=== PATIENT | male | born 1995 | race Caucasian/White ===

== ENCOUNTER → 2017-05-28 | Outpatient (CLI) | payer OTHER, SELFPAY | PROVIDERS: Visit Provider Physician Assistant | DX: Z79.899 Other long term (current) drug therapy (principal); L70.0 Acne vulgaris | CPT/HCPCS: 36415; 80053; 80061; 85025 ==

== ENCOUNTER → 2017-09-23 12:19 | Outpatient (CLI) | payer OTHER, SELFPAY ==
--- NOTE | 2017-09-23 12:24 | XR_ITS ---
XR foot RT min 3V HISTORY: ITS.REASON: Right foot pain ORDERING PHYSICIAN: Kj Interiano MD PATIENT AGE: 22 years COMPARISON: FINDINGS: No fracture or dislocation. No lytic or blastic change. There is normal mineralization.. The joint spaces are well-preserved. No significant degenerative/arthritic changes. No erosive changes evident. No calcaneal spur apparent IMPRESSION: Negative right, no acute finding
--- NOTE | 2017-09-23 12:24 | XR_ITS ---
XR foot LT min 3V HISTORY: ITS.REASON: Left foot pain ORDERING PHYSICIAN: Kj Interiano MD PATIENT AGE: 22 years COMPARISON: None FINDINGS: No fracture or dislocation. No lytic or blastic change. There is normal mineralization.. The joint spaces are well-preserved. No significant degenerative/arthritic changes. No erosive changes evident. No calcaneal spur evident IMPRESSION: Negative left, no acute finding
== END ==
PROVIDERS: Visit Provider Orthopaedic Surgery
DX: M79.671 Pain in right foot (principal); M79.672 Pain in left foot
CPT/HCPCS: 73630

== ENCOUNTER 2017-09-29 14:13 | Outpatient (RCR) | payer OTHER, SELFPAY | END 2017-09-29 14:14 | disposition home or self-care (01) | LOC: PT 14:13 | PROVIDERS: PCP Orthopaedic Surgery; Visit Provider Orthopaedic Surgery | DX: M79.671 Pain in right foot (principal); M79.672 Pain in left foot; M72.2 Plantar fascial fibromatosis | CPT/HCPCS: 97033; 97035; 97140; 97163 ==